=== PATIENT | female | born 1930 | race Asian ===

== ENCOUNTER 2018-12-11 17:26 | Emergency (ER) | payer MEDICAID ==
[~2018-12-11] VITALS: Ht 149.9 cm; Wt 49.9 kg
[2018-12-11 17:30] VITALS: BP_SYST 135
--- NOTE | 2018-12-11 18:00 | NUR ---
Patient to ER bed H1 to gown for evaluation. Side rails up. Report given to MAYI MARTINEZ
[2018-12-11] MEDS ORDERED: KETOROLAC TROMETHAMINE 30 MG VIAL IVP ONE (18:30)
[2018-12-11] MEDS ORDERED: NS 500 ML IV ONE (18:30)
--- NOTE | 2018-12-11 19:00 | NUR ---
patient BIB BLS transport from [facility] living with c/o REEDER. patient is not armenian speaking, however, understands events. unknown time of onset, patient is wearing dark glasses. # 18 gauge angiocath placed to LFA. Use of asceptic technique. Opsite placed over site. Blood return noted. Blood for lab drawn from site. Flushed with 10 cc of normal saline. No evidence of infiltration noted. Patient tolerated well. Medicated per MD orders. IVF infusing with no s/s of infiltration at this time. no other complaint or injury at this time. Will cont to monitor.
--- NOTE | 2018-12-11 19:10 | NUR ---
ER at bedside examining patient.
[2018-12-11 19:16] LABS: BASOPHILS % (AUTO) 0.5 % (0.0-2.0); EOSINOPHILS % (AUTO) 0.4 % (0.0-4.0); HEMATOCRIT 34.4 % (36-48); HEMOGLOBIN 11.3 g/dL (12.0-16.0); LYMPHOCYTES # (AUTO) 0.9 K/uL (1.0-5.5); MEAN CORPUSCULAR HEMOGLOBIN 28 pg (27-31); MEAN CORPUSCULAR HGB CONC 33 % (32-36); MEAN CORPUSCULAR VOLUME 86 fL (79.0-98.0); MONOCYTES # (AUTO) 0.3 K/uL (0.0-1.0); MONOCYTES % (AUTO) 4.2 % (1.7-9.3); NEUTROPHILS # (AUTO) 6.5 K/uL (1.8-7.7); NEUTROPHILS % (AUTO) 83.9 % (40.0-70.0); PLATELET COUNT (AUTO) 160 K/uL (130-430); RED BLOOD CELL COUNT(AUTO) 4.02 MIL/uL (4.2-6.2); RED CELL DISTRIBUTION WIDTH 14.2 % (9.0-15.0); WHITE BLOOD COUNT (AUTO) 7.7 K/uL (4.8-10.8)
[2018-12-11 19:29] LABS: INR 0.9 (0.8-1.2); PROTHROMBIN TIME 9.6 SECS (9.5-12.5)
[2018-12-11 19:38] LABS: ANION GAP 5 (5-15); CALCIUM 9.4 mg/dL (8.4-11.0); CHLORIDE 103 mmol/L (98-107); GLUCOSE 100 mg/dL (70-99); SODIUM SERUM 135 mmol/L (136-145); UREA NITROGEN, BLOOD 19 mg/dL (8-21)
[2018-12-11 19:39] LABS: POTASSIUM 4.7 mmol/L (3.5-5.1)
[2018-12-11 19:43] LABS: ALANINE AMINOTRANSFERASE 18 U/L (12-78); ALBUMIN 3.5 g/dL (3.4-4.8); ASPARTATE AMINOTRANSFERASE 30 U/L (10-37); TOTAL BILIRUBIN 1.3 mg/dL (0.0-1.0)
[2018-12-11] MEDS ORDERED: CHOL100038 PO (21:08)
[2018-12-11] MEDS ORDERED: LACT1CAP69 PO (21:09)
[2018-12-11] MEDS ORDERED: AMLO5TAB4 PO (21:10)
[2018-12-11] MEDS ORDERED: ALLO100T PO (21:13)
[2018-12-11] MEDS ORDERED: ASPI-1153 PO (21:14)
[2018-12-11] MEDS ORDERED: DONE10TA44 PO (21:14)
[2018-12-11] MEDS ORDERED: LOSA50TA28 PO (21:15)
[2018-12-11] MEDS ORDERED: CRAN450T9 PO (21:16)
[2018-12-11] MEDS ORDERED: ACET-2165 PO (21:18)
[2018-12-11] MEDS ORDERED: NITSL SL (21:19)
[2018-12-11] MEDS ORDERED: OSCAL (21:20)
[2018-12-11] MEDS ORDERED: VIT D PO (21:21)
[2018-12-11] MEDS ORDERED: OSCAL PO (21:21)
--- NOTE | 2018-12-11 21:23 | NUR ---
Medication reconciliation completed with information provided by [facility]. Any prior medication reconciliation on file was reviewed and corrected.
--- NOTE | 2018-12-11 23:16 | NUR ---
candie from case managment from insurance called for patient information.
--- NOTE | 2018-12-12 00:13 | NUR ---
patient transportation arrived.
[2018-12-12 00:16] VITALS: BP_SYST 112
--- NOTE | 2018-12-12 00:20 | NUR ---
Patient to be transferred to [facility]. Is being transferred due to higher level of care. Receiving facility has accepting physician and available space. ER physician has signed transfer form. Patient or responsible democrat has agreed to transfer and signed form. Patient belongings inventoried and will be sent with patient. Copy of nursing notes, lab reports, EKG, Physicians Orders and X-rays to be sent with patient. Report called to Raji at receiving facility. Receiving physician is Viviana. [facility] ambulance service has been called for transfer. ETA is now.
== END 2018-12-12 00:20 | disposition short-term general hospital (02) ==
LOC: SED 17:26
DX: R41.82 Altered mental status, unspecified (principal); R55 Syncope and collapse; F03.90 Unspecified dementia, unspecified severity, without behavioral disturbance, psychotic disturbance, mood disturbance, and anxiety; K21.9 Gastro-esophageal reflux disease without esophagitis; Z86.2 Personal history of diseases of the blood and blood-forming organs and certain disorders involving the immune mechanism; Z79.82 Long term (current) use of aspirin; Z79.899 Other long term (current) drug therapy
CPT/HCPCS: 36415; 70450; 71045; 80053; 83605; 84484; 85025; 85610; 85730; 87040; 96361; 96374; 99285; J1885; J7040

== ENCOUNTER 2019-01-15 16:38 | Emergency (ER) | payer MEDICAID ==
[~2019-01-15] VITALS: Ht 154.9 cm; Wt 52.6 kg
[~2019-01-15 16:38] MED LIST: ACET-2165 PO; ALLO100T PO; AMLO5TAB4 PO; ASPI-1153 PO; CHOL100038 PO; CRAN450T9 PO; DONE10TA44 PO; LACT1CAP69 PO; LOSA50TA28 PO; NITSL SL; OSCAL PO; VIT D PO
[2019-01-15 16:40] VITALS: BP_SYST 122
[2019-01-15] MEDS ORDERED: NACL 0.9% 1,000 ML IV ONE (17:00)
[2019-01-15 17:24] LABS: BASOPHILS % (AUTO) 0.5 % (0.0-2.0); EOSINOPHILS # (AUTO) 0.1 K/uL (0.0-0.4); EOSINOPHILS % (AUTO) 2.4 % (0.0-4.0); HEMATOCRIT 34.4 % (36-48); HEMOGLOBIN 11.4 g/dL (12.0-16.0); LYMPHOCYTES # (AUTO) 1.3 K/uL (1.0-5.5); LYMPHOCYTES % (AUTO) 23.7 % (20.5-51.5); MEAN CORPUSCULAR HEMOGLOBIN 29 pg (27-31); MEAN CORPUSCULAR HGB CONC 33 % (32-36); MEAN CORPUSCULAR VOLUME 86 fL (79.0-98.0); MONOCYTES # (AUTO) 0.5 K/uL (0.0-1.0); MONOCYTES % (AUTO) 8.9 % (1.7-9.3); NEUTROPHILS # (AUTO) 3.6 K/uL (1.8-7.7); NEUTROPHILS % (AUTO) 64.5 % (40.0-70.0); PLATELET COUNT (AUTO) 184 K/uL (130-430); RED BLOOD CELL COUNT(AUTO) 3.99 MIL/uL (4.2-6.2); RED CELL DISTRIBUTION WIDTH 14.6 % (9.0-15.0); WHITE BLOOD COUNT (AUTO) 5.6 K/uL (4.8-10.8)
[2019-01-15 17:50] LABS: BILIRUBIN,URINE NEGATIVE (NEGATIVE); BLOOD, URINE 3+ (NEGATIVE); CLARITY/URINE CLOUDY (CLEAR); COLOR,URINE YELLOW (YELLOW); GLUCOSE,URINE NEGATIVE (NEGATIVE); KETONES,URINE NEGATIVE (NEGATIVE); LEUKOCYTE ESTERASE ,URINE 3+ (NEGATIVE); PROTEIN URINE 1+ (NEGATIVE)
[2019-01-15 17:51] LABS: NITRITE, URINE POSITIVE (NEGATIVE); UROBILINOGEN,URINE 0.2 (0.2-1.0)
[2019-01-15 17:52] LABS: BACTERIA,URINE MANY /HPF (None Seen); MUCUS,URINE None Seen /LPF (None Seen); RBC,URINE 0-3 /HPF (0-3); WBC,URINE >100 /HPF (0-3)
[2019-01-15 18:14] LABS: ANION GAP 7 (5-15); CALCIUM 9.6 mg/dL (8.4-11.0); CHLORIDE 107 mmol/L (98-107); CREATININE 1.04 mg/dL (0.55-1.30); GLUCOSE 92 mg/dL (70-99); POTASSIUM 4.3 mmol/L (3.5-5.1); SODIUM SERUM 142 mmol/L (136-145); UREA NITROGEN, BLOOD 16 mg/dL (8-21)
[2019-01-15] MEDS ORDERED: cefTRIAXone 1 GM IVPB PREMIX 50 ML IV ONE (18:15)
[2019-01-15 18:20] LABS: ALANINE AMINOTRANSFERASE 14 U/L (12-78); ALBUMIN 3.6 g/dL (3.4-4.8); ASPARTATE AMINOTRANSFERASE 22 U/L (10-37)
[2019-01-15] MEDS ORDERED: ASPI-1153 PO (18:33)
[2019-01-15] MEDS ORDERED: FAMO20TA8 PO (18:33)
[2019-01-15] MEDS ORDERED: DOCU250C14 PO (18:33)
[2019-01-15] MEDS ORDERED: NACL 0.9% 1,000 ML IV SCH (18:53)
[2019-01-15 21:08] VITALS: BP_SYST 153
== END 2019-01-15 20:41 | disposition short-term general hospital (02) ==
LOC: SED 16:38
DX: N39.0 Urinary tract infection, site not specified (principal); F03.90 Unspecified dementia, unspecified severity, without behavioral disturbance, psychotic disturbance, mood disturbance, and anxiety; K21.9 Gastro-esophageal reflux disease without esophagitis; Z86.2 Personal history of diseases of the blood and blood-forming organs and certain disorders involving the immune mechanism; Z79.899 Other long term (current) drug therapy
CPT/HCPCS: 36415; 71045; 80053; 81000; 83605; 84484; 85025; 87040; 87086; 87186; 93005; 96365; 99285; J0696; J7030